=== PATIENT | male | born 1995 | race Caucasian/White ===

== ENCOUNTER → 2020-09-22 | Outpatient (REF) | payer OTHER ==
[2020-09-22 19:30] LABS: SEMEN APPEARANCE OPAQUE (OPAQUE)
[2020-09-22 19:31] LABS: SEMEN VISCOSITY LIQUID (LIQUID); SEMEN VOLUME 1.6 ml (2.0-5.0); SPERM CONCENTRATION 86.9 M/ml (>=15.0); WBC CONCENTRATION <=1 M/ml (<=1 M/ml)
== END ==
LOC: M LAB REF 16:11
DX: Z31.41 Encounter for fertility testing (principal)

== ENCOUNTER → 2020-09-29 | Outpatient (REF) | payer OTHER ==
[2020-09-29 08:58] LABS: SEMEN APPEARANCE OPAQUE (OPAQUE); SEMEN VISCOSITY LIQUID (LIQUID); SEMEN VOLUME 5.7 ml (2.0-5.0); SPERM CONCENTRATION 99.3 M/ml (>=15.0); WBC CONCENTRATION <=1 M/ml (<=1 M/ml)
== END ==
LOC: M LAB REF 08:45
DX: N46.9 Male infertility, unspecified (principal)

== ENCOUNTER → 2021-04-05 | Outpatient (CLI) | payer OTHER ==
--- NOTE | 2021-04-05 16:40 | REP ---
INDICATION: STRAIN. COMPARISON: None. TECHNIQUE: Seven views of the cervical spine are obtained. FINDINGS: Cervical vertebral body heights are preserved alignment is normal. Flexion extension lateral view show no subluxation or instability. Prevertebral soft tissues are not widened. Disc spaces are maintained. Oblique images demonstrate intact neural foramina bilaterally at each cervical level and normally aligned facets. AP and open-mouth odontoid views are unremarkable. IMPRESSION: Negative radiographs of the cervical spine. <Electronically signed by Rodney Varghese > 04/05/21 [id number]
--- NOTE | 2021-04-05 16:43 | REP ---
INDICATION: STRAIN. COMPARISON: None. TECHNIQUE: Five views lumbosacral spine. FINDINGS: There is no compression fracture or malalignment. There is straightening of the normal lumbar lordosis. Disc spaces are well preserved. Posterior elements are intact. IMPRESSION: No fracture or dislocation. Straightening of the normal lumbar lordosis may indicate spasm. <Electronically signed by Archie Chaparro > 04/05/21 [id number]
== END ==
LOC: M WUC 14:31
PROVIDERS: ATTEND Physician Assistant
DX: S16.1XXA Strain of muscle, fascia and tendon at neck level, initial encounter (principal); S39.012A Strain of muscle, fascia and tendon of lower back, initial encounter; X58.XXXA Exposure to other specified factors, initial encounter; Y92.89 Other specified places as the place of occurrence of the external cause; Y93.89 Activity, other specified; Y99.8 Other external cause status

== ENCOUNTER 2021-05-03 19:48 | Emergency (ER) | payer OTHER ==
[~2021-05-03] VITALS: Ht 182.9 cm; Wt 70.5 kg
[2021-05-03 19:50] VITALS: BP 127/80
[2021-05-03] MEDS ORDERED: ADDE25CA PO (20:09)
== END 2021-05-03 21:45 | disposition left against medical advice (07) ==
LOC: M ED 19:48
DX: Z53.29 Procedure and treatment not carried out because of patient's decision for other reasons (principal)

== ENCOUNTER → 2021-09-19 | Outpatient (CLI) | payer OTHER ==
[~2021-09-19] MED LIST: ADDE25CA PO
== END ==
LOC: M LABSMTC 11:32
PROVIDERS: ATTEND Pediatrics
DX: Z11.52 Encounter for screening for COVID-19 (principal)